=== PATIENT | female | born 1970 | race Caucasian/White ===

== ENCOUNTER → 2018-09-22 | Outpatient (CLI) | payer OTHER ==
--- NOTE | 2018-09-22 15:47 | 2DMMODE ---
[facility] [place] [address] 2 D/M-MODE ECHOCARDIOGRAM Name: BETHANYSHAWNEERONAK A Room #: REG [facility]#: [id number] ������������� Admission: 09/22/18 ������������� Attend Phys: Cruz Mckoy, Discharge: ��� ������������� ��� Date of : 70 Date of Service: 09/22/18 1546 �� Report #: [id number] �������� ��������������������������������������������[id number] THIS REPORT FOR: //name// APPROVED REPORT Study performed: 09/22/2018 13:56:33 EXAM: Comprehensive 2D, Doppler, and color-flow Echocardiogram Patient Location: Out-Patient Room #: Echo Lab #2 Status: routine BSA: 1.52 HR: 62 bpm BP: 130/80 mmHg Rhythm: NSR Other Information Study Quality: Good Indications CVA/TIA Echo Enhancing Agent Indication: Rule Out Septal Defect Agent(s) / Amount(s) Used: Agitated Saline 8 cc 2D Dimensions RVDd: 26.01 mm IVSd: 8.59 (7-11mm) LVDd: 39.16 mm PWd: 7.82 (7-11mm) Ascending Ao: 29.05 (22-36mm) LVDs: 26.49 (25-40mm) Aortic Root: 28.66 mm Volumes Left Atrial Volume (Systole) Single Plane 4CH: 15.58 mL Single Plane 2CH: 24.29 mL LA ESV Index: 15.00 mL/m2 Aortic Valve AoV Peak Mauricio.: 1.09 m/s AO Peak Gr.: 4.79 mmHg LVOT Max P.64 mmHg LVOT Max V: 0.95 m/s Mitral Valve [facility] [address] [address] 2 D/M-MODE ECHOCARDIOGRAM Name: RONAK GATES Room #: REG [facility]#: [id number] ������������� Admission: 09/22/18 ������������� Attend Phys: Cruz Mckoy, Discharge: ��� ������������� ��� Date of : 70 Date of Service: 09/22/18 1546 �� Report #: [id number] �������� ��������������������������������������������[id number] E/A Ratio: 1.2 MV Decel. Time: 166.33 ms MV E Max Mauricio.: 0.71 m/s MV A Mauricio.: 0.60 m/s MV PHT: 48.24 ms IVRT: 87.66 ms Pulmonary Valve PV Peak Mauricio.: 0.83 m/s PV Peak Gr.: 2.77 mmHg Pulmonary Vein P Vein S: 0.44 m/s P Vein A: 0.28 m/s P Vein D: 0.54 m/s P Vein A Dur.: 96.9 msec P Vein S/D Ratio: 0.81 Tricuspid Valve TR Peak Mauricio.: 1.75 m/s TR Peak Gr.: 12.29 mmHg PA Pressure: 18.00 mmHg Left Ventricle The left ventricle is normal size. There is normal LV segmental wall motion. There is normal left ventricular wall thickness. The left ventricular systolic function is normal. The left ventricular ejection fraction is within the normal range. LVEF is 55%. Moderate diastolic dysfunction is present (pseudonormal filling). Right Ventricle The right ventricle is normal size. The right ventricular systolic function is normal. Atria The left atrium size is normal. Interatrial septum is intact without evidence of ASD or PFO. The right atrium size is normal. Aortic Valve The aortic valve is normal in structure. Mild aortic regurgitation. There is no aortic valvular stenosis. Mitral Valve The mitral valve is normal in structure. Mild mitral regurgitation. No evidence of mitral valve stenosis. Tricuspid Valve The tricuspid valve is normal in structure. Mild tricuspid regurgitation. Estimated PAP is 18mmHg. [address] [address] 2 D/M-MODE ECHOCARDIOGRAM Name: RONAK GATES [facility]: [id number] ������������� Admission: 09/22/18 ������������� Attend Phys: Cruz Mckoy, Discharge: ��� ������������� ��� Date of : 70 Date of Service: 09/22/18 1546 �� Report #: [id number] �������� ��������������������������������������������[id number] Pulmonic Valve The pulmonary valve is normal in structure. Trace pulmonic regurgitation. Great Vessels The aortic root is normal in size. IVC is normal in size and collapses >50% with inspiration. Pericardium There is no pericardial effusion. <Conclusion> The left ventricle is normal size. LVEF is 55%. Interatrial septum is intact without evidence of ASD or PFO. The aortic valve is normal in structure. Mild aortic regurgitation. The mitral valve is normal in structure. Mild mitral regurgitation. The tricuspid valve is normal in structure. Mild tricuspid regurgitation. Estimated PAP is 18mmHg. The pulmonary valve is normal in structure. Trace pulmonic regurgitation. There is no pericardial effusion. ��������������������������������������������� <ELECTRONICALLY SIGNED> ���������������������������������������� By: Brown Nino MD ��������������������������������������������� 09/22/18 1546 1546 1546 Brown Nino MD /INF
== END ==
LOC: CV 12:07
DX: I08.3 Combined rheumatic disorders of mitral, aortic and tricuspid valves (principal); R93.89 Abnormal findings on diagnostic imaging of other specified body structures; R41.3 Other amnesia; H57.9 Unspecified disorder of eye and adnexa; I67.82 Cerebral ischemia

== ENCOUNTER → 2018-09-27 | Outpatient (CLI) | payer OTHER | LOC: MRI 10:39 | DX: R41.3 Other amnesia (principal); H57.9 Unspecified disorder of eye and adnexa; R93.89 Abnormal findings on diagnostic imaging of other specified body structures ==